=== PATIENT | male | born 1970 | race Caucasian/White ===

== ENCOUNTER 2020-09-12 22:00 | Emergency (ER) | payer OTHER ==
[2020-09-12 23:04] LABS: BASOPHIL 1.2 % (0-2); EOSINOPHIL 0.4 % (0-5); HCT 48.9 % (42.0-52.0); HGB 16.8 g/dl (13.2-18.0); LYMPHOCYTE 31.8 % (15-48); MCH 31.3 pg (25.0-31.0); MCHC 34.4 g/dL (32.0-36.0); MCV 91.1 fL (78.0-100.0); MONOCYTE 7.7 % (0-12); NEUTROPHIL 58.5 % (41-80); NRBC 0; PLT 295 K/uL (150-400); RBC 5.37 M/uL (4.70-6.00); RDW 14.6 % (11.5-14.0); WBC 6.9 K/uL (4.0-10.5)
[2020-09-12 23:22] LABS: ALBUMIN 4.1 g/dL (3.4-5.0); BILIRUBIN - TOTAL 0.4 mg/dL (0.2-1.0); BUN/CREAT RATIO (CALC) 11.5 RATIO; CREATININE 0.78 mg/dL (0.67-1.17); GLOBULIN (CALCULATION) 4.1 g/dL; POTASSIUM 3.5 mmol/L (3.5-5.1); TOTAL PROTEIN 8.2 g/dL (6.4-8.2)
[2020-09-13] MEDS ORDERED: PEPCID AC20 MG PO (01:37)
[2020-09-13 05:29] LABS: BILIRUBIN NEGATIVE (NEGATIVE); BLOOD NEGATIVE Ery/uL (NEGATIVE); CLARITY CLEAR (CLEAR); COLOR YELLOW (YELLOW); GLUCOSE (U) NORMAL (NORMAL); LEUKOCYTES NEGATIVE Leu/uL (NEGATIVE); NITRITE NEGATIVE (NEGATIVE); PROTEIN 2+ mg/dL (NEGATIVE); SPECIFIC GRAVITY >=1.030 (1.001-1.030); UROBILINOGEN 0.2 mg/dL (0.2-1.0); pH 5.5 (5.0-9.0)
[2020-09-13 05:33] LABS: AMPHETAMINES NEGATIVE (NEGATIVE); BARBITURATES NEGATIVE (NEGATIVE); ECSTASY (MDMA) NEGATIVE (NEGATIVE); MARIJUANA (THC) POSITIVE (NEGATIVE); METHADONE NEGATIVE (NEGATIVE); OPIATES NEGATIVE (NEGATIVE); OXYCODONE NEGATIVE (NEGATIVE)
[2020-09-13 07:41] LABS: BACTERIA TRACE; SQUAMOUS EPITHELIAL CELLS RARE; URINARY RBC RARE; URINARY WBC RARE
[2020-09-13 07:46] LABS: AMORPHOUS URATES CRYSTALS LARGE
== END 2020-09-13 06:28 | disposition home or self-care (01) ==
LOC: FER 22:00
PROVIDERS: Emergency Medicine
DX: F10.129 Alcohol abuse with intoxication, unspecified (principal); Z20.822 Contact with and (suspected) exposure to COVID-19
CPT/HCPCS: 36415; 80053; 80305; 81001; 85025; G0480; J2060; J2405; J3411; J3475; J7030; U0002

== ENCOUNTER 2021-10-19 15:53 | Emergency (ER) | payer OTHER ==
[~2021-10-19 15:53] MED LIST: PEPCID AC20 MG PO
[2021-10-19 17:08] LABS: BILIRUBIN 2+ mg/dL (NEGATIVE); BLOOD 2+ Ery/uL (NEGATIVE); CLARITY CLEAR (CLEAR); COLOR YELLOW (YELLOW); GLUCOSE (U) NORMAL (NORMAL); LEUKOCYTES NEGATIVE Leu/uL (NEGATIVE); NITRITE NEGATIVE (NEGATIVE); PROTEIN 2+ mg/dL (NEGATIVE); SPECIFIC GRAVITY >=1.030 (1.001-1.030); UROBILINOGEN 0.2 mg/dL (0.2-1.0)
[2021-10-19 17:08] LABS: BASOPHIL 0.8 % (0-2); EOSINOPHIL 0.6 % (0-5); HCT 44.1 % (42.0-52.0); HGB 15.1 g/dl (13.2-18.0); LYMPHOCYTE 20.7 % (15-48); MCH 30.8 pg (25.0-31.0); MCHC 34.2 g/dL (32.0-36.0); MCV 89.8 fL (78.0-100.0); MPV 8.9 fL (6.0-9.5); NEUTROPHIL 64.6 % (41-80); NRBC 0; PLT 289 K/uL (150-400); RBC 4.91 M/uL (4.70-6.00); RDW 14.4 % (11.5-14.0); WBC 9.8 K/uL (4.0-10.5)
[2021-10-19 17:20] LABS: BACTERIA TRACE
[2021-10-19 17:39] LABS: ALKALINE PHOSHATASE 111 U/L (46-116); ALT 31 U/L (16-63); AMYLASE 40 U/L (25-115); AST 28 U/L (15-37); BILIRUBIN - TOTAL 1.1 mg/dL (0.2-1.0); BUN 9 mg/dL (7-18); BUN/CREAT RATIO (CALC) 11.1 RATIO; CHLORIDE 101 mmol/L (98-107); CO2 (BICARBONATE) 20 mmol/L (21-32); CREATININE 0.81 mg/dL (0.67-1.17); GLUCOSE 101 mg/dL (74-106); LIPASE 56 U/L (73-393); POTASSIUM 3.6 mmol/L (3.5-5.1)
[2021-10-19] MEDS ORDERED: NORCO 5-325 TA1 EACH PO (17:52)
[2021-10-19] MEDS ORDERED: FLOMAX 0.4 MG0.4 MG PO (17:52)
[2021-10-19] MEDS ORDERED: ONDANSETRON HCL4 MG PO (17:52)
== END 2021-10-19 18:35 | disposition home or self-care (01) ==
LOC: FER 15:53
PROVIDERS: Nurse Practitioner Family
DX: N13.2 Hydronephrosis with renal and ureteral calculous obstruction (principal); N50.811 Right testicular pain; R10.84 Generalized abdominal pain
CPT/HCPCS: 36415; 76870; 80053; 81001; 82150; 83690; 85025; 87088; G0480; J7030